=== PATIENT | male | born 1965 | race Two or more races ===

== ENCOUNTER 2018-07-27 20:59 | Emergency (ER) | payer MEDICAID, OTHER ==
[~2018-07-27] VITALS: Ht 177.8 cm; Wt 88.5 kg
--- NOTE | 2018-07-27 20:59 | NUR ---
OLINDA 81 FROM [facility] ON GROUND D/T ETOH, FIELD BS 108. PER EMS NOTED AVULSION ON FOREHEAD. VSS NO ACUTE DISTRESS NOTED AT THIS TIME. SKIN WARM AND INTACT. WILL CONTINUE TO MONITOR FOR ANY CHANGES DURING THE SHIFT.
--- NOTE | 2018-07-27 21:00 | NUR ---
ER MD FINNEY AT BEDSIDE FOR EVAL
--- NOTE | 2018-07-27 21:40 | NUR ---
OFF TO CT
--- NOTE | 2018-07-27 21:48 | NUR ---
C-COLLAR PLACED ON PATIENT PRIOR TO CT
--- NOTE | 2018-07-27 21:49 | NUR ---
PT BACK FROM CT
[2018-07-28 00:43] VITALS: BP 144/79
== END 2018-07-28 00:43 | disposition home or self-care (01) ==
LOC: ER 21:01
DX: S00.81XA Abrasion of other part of head, initial encounter (principal); F10.129 Alcohol abuse with intoxication, unspecified; M25.552 Pain in left hip; Y90.9 Presence of alcohol in blood, level not specified; W18.30XA Fall on same level, unspecified, initial encounter; Y93.89 Activity, other specified; Y92.89 Other specified places as the place of occurrence of the external cause; Y99.8 Other external cause status
CPT/HCPCS: 70450-TC; 72100-TC; 72125-TC; 73502; A4606; L0172; Z7610